=== PATIENT | male | born 1965 | race African-American/Black ===

== ENCOUNTER 2017-10-21 10:09 | Emergency (ER) | payer SELFPAY ==
[~2017-10-21] VITALS: Ht 172.7 cm; Wt 67.0 kg
[~2017-10-21 10:09] MED LIST: Z.0.NO CURRENT MEDS
[2017-10-21 10:11] VITALS: BP 137/86; PULSE 89; RESP 16; TEMP 98.4; O2SAT 98
[2017-10-21] MEDS ORDERED: KETOROLAC TROMETHAMINE 60 MG/2 ML (IM) VIAL IM ONE (10:30)
--- NOTE | 2017-10-21 10:36 | PD ---
HPI Chief Complaint: Edema Time Seen by Provider: 10:20 Travel History International Travel<30 days: No Contact w/Intl Traveler<30days: No Traveled to known affect area: No History of Present Illness HPI Patient comes in complaining of right elbow pain ongoing for 3 days. Patient states he put some Biofreeze on its seemed to make his forearm swell which has since improved. Patient is also using Timbo wrap and heat seems to make it swell. Denies any pain with movement, fevers, trauma, or IV drug use. Describes pain as annoying pain in his posterior right elbow without radiation. Denies anything making symptoms better or worse. PFSH Past Medical History Medical History: Denies Significant Hx Tetanus Vaccination: Unknown Influenza Vaccination: No Past Surgical History Surgical History: No Previous Surgery Social History Alcohol Use: No Tobacco Use: Yes (3 cig a day) Substance Use: No Allergies-Medications (Allergen,Severity, Reaction): Coded Allergies: No Known Allergies (Verified , 06/05/10) Reported Meds & Prescriptions Reported Meds & Active Scripts Active Naprosyn (Naproxen) 500 Mg Tab 500 Mg PO Q12HR PRN Reported No Current Meds (Miscellaneous Medication) Misc Review of Systems Except as stated in HPI: all other systems reviewed are Neg Physical Exam Narrative GENERAL: Well-developed, well nourished, in no acute distress, and non-ill appearing. SKIN: Focused skin assessment warm and dry. HEAD: Atraumatic. Normocephalic. EYES: Pupils equal and round. EOMI. No scleral icterus. No injection or drainage. ENT: No nasal bleeding or discharge. Mucous membranes pink and moist. NECK: Trachea midline. Supple. No nuclear rigidity. CARDIOVASCULAR: Radial pulses 2+, intact, and equal bilaterally. Capillary refill less than 2 seconds. RESPIRATORY: No accessory muscle use. No respiratory distress. MUSCULOSKELETAL: No obvious deformities. No clubbing. No cyanosis. No edema. Full range of motion. Elbow : FROM and strength equal BL with passive and active flexion, extension, and pronation/supination. No laxity noted with varus and valgus maneuvers. Pulses equal BL distal to injury. Capillary refill less than 2 seconds distal to injury and equal BL. FROM distal to injury and equal BL. Strength distal to injury equal BL. NV intact distal to injury and equal BL. Flexion and extension of thumb equal BL. Equal strength and movement with abduction/adductions of BL fingers. [employer] strength equal BL. Patient reports tenderness to palpation over right posterior elbow. It is afebrile, nonerythematous, nonindurated, without fluctuation. There is no crepitus. NEUROLOGICAL: Awake and alert. No obvious cranial nerve deficits. Motor grossly within normal limits. Normal speech. PSYCHIATRIC: Appropriate mood and affect; insight and judgment normal. Data Data Last Documented VS Vital Signs Date Time Temp Pulse Resp B/P (MAP) Pulse Ox O2 Delivery O2 Flow Rate FiO2 10/21/17 10:44 10/21/17 10:11 98.4 89 16 98 Room Air Orders Orders Ed Discharge Order (10/21/17 10:29) Ketorolac Inj (Toradol Inj) (10/21/17 10:30) Splint Or Brace Apply/Monitor (10/21/17 10:29) MDM Medical Decision Making Medical Screen Exam Complete: Yes Emergency Medical Condition: Yes Differential Diagnosis Bursitis, arthritis, strain, contusion, septic arthritis, gout, pseudogout, tendinitis, tennis elbow, golfer's elbow Narrative Course The patient appears to have acute bursitis involving the right elbow. There is no evidence to suggest infectious bursitis at this time. There is no trauma to suspect contusion, strain or fracture. There is no clinical evidence to suggest gout or pseudogout, osteoarthritis, Rheumatoid arthritis, or septic arthritis. There is also no evidence to suggest tendonitis. The patient was placed on NSAID medication. The patient was instructed on ice packs as well. The patient was instructed to follow-up with orthopedics and/or primary care provider. The patient agreed with plan. Patient in no obvious distress upon re-evaluation. Patient was asked if they wanted to speak to my attending, which the patient did not wish to do at this time. Any questions/concerns in reference to patient diagnosis/condition discussed and clarified prior to patient's discharge. Reinforced sheer importance of close follow up with patient's primary physician or primary care clinic and/or orthopedics. Instructed patient to return to ED immediately, if symptoms return/worsen. Patient showed understanding of above instructions. Further instructions and recommendations were detailed in discharge paperwork. Patient ambulated without difficulty out of ED at discharge. Diagnosis Primary Impression: Bursitis of right elbow Qualified Codes: M70.21 - Olecranon bursitis, right elbow Referrals: [facility] Patient Instructions: Elbow Bursitis (ED), Elbow Bursitis Exercises (GEN), General Instructions Additional Instructions: Follow-up with your primary care physician and/or orthopedic in 3-5 days for reevaluation. Take all medication as prescribed. Wear Timbo wrap for comfort until reevaluated. Apply ice to affected area 20 minutes per hour as needed for pain. Return to the emergency department if symptoms get worse. Med/Other Pt SpecificInfo: Prescription(s) given Scripts Naproxen (Naprosyn) 500 Mg Tab 500 MG PO Q12HR Y for PAIN SCALE 1 TO 10, #14 TAB 0 Refills Prov: Sebas Padron MD 10/21/17 Disposition: 01 DISCHARGE HOME Condition: Stable Jenaro Cortez Oct 21, 2017 10:36
[2017-10-21] MEDS ORDERED: NAPR500 PO (10:37)
== END 2017-10-21 10:56 | disposition home or self-care (01) ==
LOC: NEPK 10:09
DX: M70.21 Olecranon bursitis, right elbow (principal); F17.210 Nicotine dependence, cigarettes, uncomplicated
CPT/HCPCS: 96372; 99283; J1885